=== PATIENT | male | born 1960 | race African-American/Black ===

== ENCOUNTER 2020-06-28 20:59 | Emergency (ER) | payer OTHER ==
[~2020-06-28] VITALS: Ht 180.3 cm; Wt 77.0 kg
[2020-06-28] MEDS ORDERED: ONDANSETRON HCL 4MG/2ML INJ IV STA (21:59)
[2020-06-28] MEDS ORDERED: SODIUM CHLORIDE 0.9% 1,000 ML IV ONE (21:59)
[2020-06-28] MEDS ORDERED: KETOROLAC 30MG/ML VIAL IV STA (21:59)
[2020-06-28 23:09] LABS: HEMOGLOBIN. 14.8 g/dL (14.0-18.0); MEAN CORPUSCULAR HEMOGLOBIN 31.3 pg (28.0-32.0); MEAN CORPUSCULAR VOLUME 90.8 fL (80.0-94.0); MEAN PLATELET VOLUME 8.6 fl (7.4-10.4); PLATELET 199 x1000/uL (130-400); RED BLOOD CELL COUNT 4.74 mill/uL (4.7-6.1)
[2020-06-28 23:15] LABS: CHLORIDE 106 mEq/L (98-107)
[2020-06-28 23:20] LABS: PLATELET ESTIMATE NORMAL
[2020-06-29 00:12] LABS: CLARITY URINE CLOUDY (CLEAR); COLOR URINE DARK YELLOW (YELLOW); KETONES URINE 2+ (NEGATIVE); LEUKOCYTE ESTERASE URINE NEGATIVE (NEGATIVE); NITRITE URINE NEGATIVE (NEGATIVE); OCCULT BLOOD URINE TRACE (NEGATIVE); PROTEIN URINE 2+ (NEGATIVE); SPECIFIC GRAVITY URINE 1.031 (1.005-1.030)
[2020-06-29] MEDS ORDERED: POTASSIUM CHLORIDE 20MEQ TABLET SR PO NR (00:15)
[2020-06-29 00:38] VITALS: BP 143/91
== END 2020-06-29 00:43 | disposition home or self-care (01) ==
LOC: ER 20:59
DX: R10.84 Generalized abdominal pain (principal); R11.2 Nausea with vomiting, unspecified; I10 Essential (primary) hypertension
CPT/HCPCS: 36415; 74176; 80053; 81003; 83690; 84484; 85025; 85610; 93005; 96361; 96374; 96375; 99285; J1885; J2405; J7030

== ENCOUNTER 2021-01-06 05:20 | Emergency (ER) | payer OTHER ==
[~2021-01-06] VITALS: Ht 167.6 cm; Wt 80.0 kg
[2021-01-06] MEDS ORDERED: MORPHINE SULFATE 4 MG/ML CPJ (NOT FOR IM USE) IV STA (06:17)
[2021-01-06] MEDS ORDERED: ONDANSETRON HCL 4MG/2ML INJ IV STA ×2 (06:17→10:00)
[2021-01-06 06:25] LABS: BASOPHILS % 0.9 % (0.0-2.0); HEMATOCRIT. 43.5 % (42.0-52.0); LYMPHOCYTES % 13.2 % (20.0-50.0); MEAN CORPUSCULAR HEMOGLOBIN 32.1 pg (28.0-32.0); MONOCYTES % 4.3 % (2.0-8.0); NEUTROPHILS % 81.6 % (40.0-76.0); PLATELET 167 x1000/uL (130-400); RED BLOOD CELL COUNT 4.67 mill/uL (4.7-6.1); RED CELL DISTRIBUTION WIDTH 13.5 % (11.6-14.6)
[2021-01-06] MEDS ORDERED: SODIUM CHLORIDE 0.9% 1,000 ML IV ONE (06:30)
[2021-01-06 06:34] LABS: CHLORIDE 97 mEq/L (98-107)
[2021-01-06 07:05] LABS: PROTHROMBIN TIME 10.7 sec (9.6-11.0)
[2021-01-06 07:27] LABS: CLARITY URINE CLEAR (CLEAR); COLOR URINE YELLOW (YELLOW); KETONES URINE 1+ (NEGATIVE); LEUKOCYTE ESTERASE URINE NEGATIVE (NEGATIVE); NITRITE URINE NEGATIVE (NEGATIVE); OCCULT BLOOD URINE TRACE (NEGATIVE); PROTEIN URINE 2+ (NEGATIVE)
[2021-01-06] MEDS ORDERED: METOCLOPRAMIDE HCL 10MG/2ML VIAL IV NR (08:45)
[2021-01-06] MEDS: POTASSIUM CHLORIDE 20MEQ TABLET SR PO SCH ×2 (09:14→11:34)
[2021-01-06] MEDS ORDERED: MAGNESIUM/ALUMINUM HYDROXIDE/SIMETHICONE 30ML UDC PO STA (10:00)
[2021-01-06] MEDS ORDERED: ONDA4TAB5 MT (12:44)
[2021-01-06] MEDS ORDERED: L25 MT (12:44)
[2021-01-06 13:00] VITALS: BP 162/82
[2021-01-06] MEDS ORDERED: CHLORDIAZEPOXIDE 25MG CAPSULE PO ONE (13:00)
[2021-01-06] MEDS ORDERED: IOHEXOL-300 100 ML BOTTLE ONE (14:47)
== END 2021-01-06 13:15 | disposition home or self-care (01) ==
LOC: ER 05:20
DX: F10.229 Alcohol dependence with intoxication, unspecified (principal); R10.84 Generalized abdominal pain; R11.2 Nausea with vomiting, unspecified; R19.7 Diarrhea, unspecified; Y90.0 Blood alcohol level of less than 20 mg/100 ml; F17.290 Nicotine dependence, other tobacco product, uncomplicated; I10 Essential (primary) hypertension; Z79.899 Other long term (current) drug therapy
CPT/HCPCS: 36415; 74177; 80053; 81003; 83690; 84484; 85025; 85610; 93005; 96361; 96374; 96375; 96376; 99285; J2270; J2405; J2765; J7030; Q9967

== ENCOUNTER 2022-02-02 07:30 | Emergency (ER) | payer OTHER ==
[~2022-02-02] VITALS: Ht 165.1 cm; Wt 78.0 kg
[~2022-02-02 07:30] MED LIST: L25 MT; ONDA4TAB5 MT
[2022-02-02 07:47] VITALS: BP 203/121
[2022-02-02] MEDS ORDERED: CHLORDIAZEPOXIDE 25MG CAPSULE PO ONE (08:00)
== END 2022-02-02 08:13 | disposition home or self-care (01) ==
LOC: ER 07:54
DX: F10.239 Alcohol dependence with withdrawal, unspecified (principal); Y90.0 Blood alcohol level of less than 20 mg/100 ml; I10 Essential (primary) hypertension
CPT/HCPCS: 99283

== ENCOUNTER 2022-12-12 18:44 | Emergency (ER) | payer OTHER ==
[~2022-12-12] VITALS: Ht 172.7 cm; Wt 84.0 kg
[2022-12-12] MEDS ORDERED: ONDANSETRON HCL 4MG/2ML INJ IV STA (19:03)
[2022-12-12] MEDS ORDERED: SODIUM CHLORIDE 0.9% 1,000 ML IV ONE (19:15)
[2022-12-12 19:38] LABS: BASOPHILS % 0.4 % (0.0-2.0); EOSINOPHILS % 0.1 % (0.0-5.0); HEMATOCRIT. 42.5 % (42.0-52.0); HEMOGLOBIN. 15.1 g/dL (14.0-18.0); LYMPHOCYTES % 10.7 % (20.0-50.0); MEAN CORPUSCULAR HEMOGLOBIN 32.5 pg (28.0-32.0); MEAN CORPUSCULAR VOLUME 91.4 fL (80.0-94.0); MEAN PLATELET VOLUME 7.8 fl (7.4-10.4); MONOCYTES % 4.1 % (2.0-8.0); NEUTROPHILS % 84.7 % (40.0-76.0); PLATELET 159 x1000/uL (130-400); RED BLOOD CELL COUNT 4.64 mill/uL (4.7-6.1); RED CELL DISTRIBUTION WIDTH 12.8 % (11.6-14.6)
[2022-12-12 19:45] LABS: CHLORIDE 101 mEq/L (98-107)
[2022-12-12 19:54] LABS: ETHANOL BLOOD < 10 mg/dL
[2022-12-13] MEDS ORDERED: ONDA4TAB50 MT ×2 (02:18→15:01)
[2022-12-13] MEDS ORDERED: ONDANSETRON HCL 4MG/2ML INJ IV NR (02:30)
[2022-12-13 03:10] VITALS: BP 127/79
[2022-12-13] MEDS ORDERED: FAMO20TA8 PO (15:01)
== END 2022-12-13 05:28 | disposition home or self-care (01) ==
LOC: ER 18:44
DX: R11.2 Nausea with vomiting, unspecified (principal); I10 Essential (primary) hypertension
CPT/HCPCS: 36415; 80053; 80320; 83690; 85025; 93005; 96374; 99284; J2405; J7030; G0480

== ENCOUNTER 2022-12-13 09:39 | Emergency (ER) | payer OTHER ==
[~2022-12-13] VITALS: Ht 172.7 cm; Wt 91.0 kg
[~2022-12-13 09:39] MED LIST changes: +ONDA4TAB50 MT
[2022-12-13 09:44] VITALS: BP 147/83
[2022-12-13] MEDS ORDERED: ONDANSETRON HCL 4MG/2ML INJ IM ONE (10:45)
[2022-12-13 11:07] LABS: HEMATOCRIT. 44.2 % (42.0-52.0); HEMOGLOBIN. 15.6 g/dL (14.0-18.0); MEAN CORPUSCULAR VOLUME 90.9 fL (80.0-94.0); MEAN PLATELET VOLUME 7.8 fl (7.4-10.4); PLATELET 163 x1000/uL (130-400); RED BLOOD CELL COUNT 4.86 mill/uL (4.7-6.1); RED CELL DISTRIBUTION WIDTH 12.6 % (11.6-14.6)
[2022-12-13 11:10] LABS: CHLORIDE 106 mEq/L (98-107)
[2022-12-13 11:35] LABS: PLATELET ESTIMATE NORMAL
[2022-12-13] MEDS ORDERED: METOCLOPRAMIDE HCL 10MG/2ML VIAL IM ONE (12:15)
[2022-12-13] MEDS ORDERED: KETOROLAC 30MG/ML VIAL IM ONE (13:45)
[2022-12-13] MEDS ORDERED: ONDA4TAB50 MT (15:01)
[2022-12-13] MEDS ORDERED: FAMO20TA8 PO (15:01)
== END 2022-12-13 15:26 | disposition home or self-care (01) ==
LOC: ER 09:59
DX: R11.2 Nausea with vomiting, unspecified (principal); I10 Essential (primary) hypertension
CPT/HCPCS: 36415; 76705; 80053; 83690; 85025; 96372; 99285; J1885; J2405; J2765

== ENCOUNTER 2023-04-18 03:49 | Emergency (ER) | payer OTHER ==
[~2023-04-18] VITALS: Ht 167.6 cm; Wt 84.0 kg
[~2023-04-18 03:49] MED LIST changes: +FAMO20TA8 PO
[2023-04-18 03:58] VITALS: TEMP 99.9; O2SAT 98
[2023-04-18] MEDS ORDERED: KETOROLAC 30MG/ML VIAL IV STA (05:47)
[2023-04-18] MEDS ORDERED: ONDANSETRON HCL 4MG/2ML INJ IV STA (05:47)
[2023-04-18] MEDS ORDERED: SODIUM CHLORIDE 0.9% 1,000 ML IV ONE (06:00)
[2023-04-18 06:09] VITALS: BP 174/96; PULSE 84; RESP 16
[2023-04-18 06:29] LABS: BASOPHILS % 0.2 % (0.0-2.0); HEMATOCRIT. 40.6 % (42.0-52.0); HEMOGLOBIN. 14.6 g/dL (14.0-18.0); LYMPHOCYTES % 7.8 % (20.0-50.0); MEAN PLATELET VOLUME 8.1 fl (7.4-10.4); MONOCYTES % 4.1 % (2.0-8.0); NEUTROPHILS % 87.9 % (40.0-76.0); PLATELET 153 x1000/uL (130-400); RED BLOOD CELL COUNT 4.41 mill/uL (4.7-6.1); RED CELL DISTRIBUTION WIDTH 14.7 % (11.6-14.6)
[2023-04-18 06:33] LABS: PROTHROMBIN TIME 10.6 sec (9.6-11.0)
[2023-04-18 06:46] LABS: CHLORIDE 99 mEq/L (98-107)
== END 2023-04-18 09:10 | disposition home or self-care (01) ==
LOC: ER 03:49
DX: R11.2 Nausea with vomiting, unspecified (principal); F10.229 Alcohol dependence with intoxication, unspecified; Y90.0 Blood alcohol level of less than 20 mg/100 ml; I10 Essential (primary) hypertension
CPT/HCPCS: 36415; 76705; 80053; 83690; 84484; 85025; 85610; 93005; 96361; 96374; 96375; 99285; J1885; J2405; J7030

== ENCOUNTER 2024-01-28 13:52 | Emergency (ER) | payer OTHER ==
[~2024-01-28] VITALS: Ht 167.6 cm; Wt 82.0 kg
[~2024-01-28 13:52] MED LIST changes: +CHLO25CA11 MT; -L25 MT
[2024-01-28 13:55] VITALS: O2SAT 98
[2024-01-28] MEDS ORDERED: DICYCLOMINE 10 MG/5 ML ORAL SYR PO STA (14:02)
[2024-01-28] MEDS: MAGNESIUM/ALUMINUM HYDROXIDE/SIMETHICONE 30ML UDC PO STA (15:01)
[2024-01-28] MEDS: CHLORDIAZEPOXIDE 25MG CAPSULE PO ONE (15:02)
[2024-01-28] MEDS: ONDANSETRON 4MG ODT PO STA (15:02)
[2024-01-28] MEDS: DICYCLOMINE HCL 10MG CAPSULE PO SCH (15:02)
[2024-01-28 16:01] LABS: BASOPHILS % 0.6 % (0.0-2.0); HEMATOCRIT. 39.6 % (42.0-52.0); HEMOGLOBIN. 13.8 g/dL (14.0-18.0); LYMPHOCYTES % 12.8 % (20.0-50.0); MEAN CORPUSCULAR HEMOGLOBIN 34.4 pg (28.0-32.0); MEAN CORPUSCULAR HGB CONC 34.8 g/dL (31.0-37.0); MEAN CORPUSCULAR VOLUME 98.8 fL (80.0-94.0); MEAN PLATELET VOLUME 8.2 fl (7.4-10.4); MONOCYTES % 6.6 % (2.0-8.0); PLATELET 122 x1000/uL (130-400); WHITE BLOOD COUNT 5.5 x1000/uL (4.5-11.0)
[2024-01-28 16:19] LABS: ALANINE AMINOTRANSFERASE 45 IU/L (10-49); ALBUMIN 5.4 g/dL (3.2-4.8); ASPARTATE AMINOTRANSFERASE 38 IU/L (<34); BILIRUBIN TOTAL 3.1 mg/dL (0.1-1.0); CALCIUM 9.8 mg/dL (8.7-10.4); CARBON DIOXIDE 30 mEq/L (21-32); CHLORIDE 100 mEq/L (98-107); CREATININE 1.5 mg/dL (0.6-1.3); ETHANOL BLOOD < 10 mg/dL (<10); GLUCOSE 99 mg/dL (70-105); SODIUM 137 mEq/L (136-145); UREA NITROGEN BLOOD 14 mg/dL (9-23)
[2024-01-28] MEDS ORDERED: FAMO-135 MT (16:29)
[2024-01-28] MEDS: SODIUM CHLORIDE 0.9% 1,000 ML IV ONE (16:30)
[2024-01-28 18:01] LABS: CLARITY URINE CLEAR (CLEAR); COLOR URINE DARK YELLOW (YELLOW); GLUCOSE URINE NEGATIVE (NEGATIVE); KETONES URINE 1+ (NEGATIVE); LEUKOCYTE ESTERASE URINE NEGATIVE (NEGATIVE); NITRITE URINE NEGATIVE (NEGATIVE); OCCULT BLOOD URINE NEGATIVE (NEGATIVE); PH URINE 5.5 (4.5-8.0); PROTEIN URINE 1+ (NEGATIVE); SPECIFIC GRAVITY URINE 1.022 (1.005-1.030)
[2024-01-28 18:34] LABS: RBC URINE 0-2 /hpf (0-2); WBC URINE 0-2 /hpf (0-2)
[2024-01-28 18:35] LABS: BACTERIA URINE NONE SEEN; HYALINE CASTS URINE 0-5 /lpf; SQUAMOUS EPITHELIAL CELL URINE NONE SEEN /lpf (RARE/1+)
[2024-01-28 18:47] VITALS: BP 124/89; PULSE 98; RESP 16; TEMP 98.5
[2024-01-29] MEDS ORDERED: ONDA4TAB50 MT (07:10)
[2024-01-29] MEDS ORDERED: MAG355OR21 MT (07:10)
== END 2024-01-28 19:01 | disposition home or self-care (01) ==
LOC: ER 13:52
DX: F10.239 Alcohol dependence with withdrawal, unspecified (principal); K76.0 Fatty (change of) liver, not elsewhere classified; I10 Essential (primary) hypertension; Y90.0 Blood alcohol level of less than 20 mg/100 ml
CPT/HCPCS: 80053; 81003; 80320; 83690; 85025; 36415; 76705; 96360; 99284; Q0162; J7030; G0480

== ENCOUNTER 2024-01-29 02:06 | Emergency (ER) | payer OTHER ==
[~2024-01-29] VITALS: Ht 177.8 cm; Wt 82.0 kg
[~2024-01-29 02:06] MED LIST changes: +FAMO-135 MT
[2024-01-29 02:09] VITALS: O2SAT 99
[2024-01-29] MEDS: MAGNESIUM/ALUMINUM HYDROXIDE/SIMETHICONE 30ML UDC PO ONE (03:39)
[2024-01-29] MEDS: PANTOPRAZOLE 40MG DR TABLET PO ONE (03:40)
[2024-01-29] MEDS: ONDANSETRON 4MG ODT PO ONE (03:40)
[2024-01-29] MEDS: LOSARTAN 100 MG TABLET PO ONE (05:45)
[2024-01-29] MEDS: AMLODIPINE 10MG TABLET PO ONE (05:46)
[2024-01-29] MEDS: ACETAMINOPHEN 325MG TABLET PO ONE (05:46)
[2024-01-29] MEDS ORDERED: ONDA4TAB50 MT (07:10)
[2024-01-29] MEDS ORDERED: MAG355OR21 MT (07:10)
[2024-01-29 07:20] VITALS: BP 186/107; PULSE 82; RESP 16; TEMP 98.1
== END 2024-01-29 07:29 | disposition home or self-care (01) ==
LOC: ER 02:06
DX: R11.2 Nausea with vomiting, unspecified (principal); I10 Essential (primary) hypertension; Z91.148 Patient's other noncompliance with medication regimen for other reason
CPT/HCPCS: 99285; Q0162

== ENCOUNTER 2024-05-21 03:02 | Emergency (ER) | payer OTHER ==
[~2024-05-21] VITALS: Ht 175.3 cm; Wt 77.0 kg
[~2024-05-21 03:02] MED LIST changes: +MAG355OR21 MT
[2024-05-21 03:04] VITALS: O2SAT 99
[2024-05-21] MEDS: MAGNESIUM/ALUMINUM HYDROXIDE/SIMETHICONE 30ML UDC PO STA (03:28)
[2024-05-21] MEDS: ONDANSETRON 4MG ODT PO STA (03:28)
[2024-05-21 03:51] LABS: BASOPHILS % 0.3 % (0.0-2.0); HEMATOCRIT. 39.2 % (42.0-52.0); HEMOGLOBIN. 13.5 g/dL (14.0-18.0); LYMPHOCYTES % 7.4 % (20.0-50.0); MEAN CORPUSCULAR HEMOGLOBIN 34.3 pg (28.0-32.0); MEAN CORPUSCULAR HGB CONC 34.3 g/dL (31.0-37.0); MEAN CORPUSCULAR VOLUME 99.8 fL (80.0-94.0); MEAN PLATELET VOLUME 7.3 fl (7.4-10.4); MONOCYTES % 3.5 % (2.0-8.0); NEUTROPHILS % 88.8 % (40.0-76.0); PLATELET 229 x1000/uL (130-400); RED BLOOD CELL COUNT 3.93 mill/uL (4.7-6.1); RED CELL DISTRIBUTION WIDTH 13.6 % (11.6-14.6); WHITE BLOOD COUNT 5.5 x1000/uL (4.5-11.0)
[2024-05-21 04:24] LABS: CARBON DIOXIDE 26 mEq/L (21-32); CHLORIDE 102 mEq/L (98-107); SODIUM 139 mEq/L (136-145)
[2024-05-21 04:25] LABS: CALCIUM 9.6 mg/dL (8.7-10.4)
[2024-05-21 04:29] LABS: GLUCOSE 119 mg/dL (70-105); UREA NITROGEN BLOOD 9 mg/dL (9-23)
[2024-05-21 04:31] LABS: ALANINE AMINOTRANSFERASE 63 IU/L (10-49); ALBUMIN 5.2 g/dL (3.2-4.8); ASPARTATE AMINOTRANSFERASE 37 IU/L (<34); BILIRUBIN DIRECT 0.7 mg/dL (<=3.0); BILIRUBIN TOTAL 1.8 mg/dL (0.1-1.0)
[2024-05-21 04:32] LABS: PROTEIN TOTAL 8.2 g/dL (6.0-8.3)
[2024-05-21] MEDS ORDERED: ONDA4TAB50 MT (05:58)
[2024-05-21] MEDS ORDERED: IBUP-2028 MT (05:58)
[2024-05-21 06:13] VITALS: BP 139/88; PULSE 89; RESP 20; TEMP 98.6
[2024-05-21] MEDS ORDERED: ONDANSETRON 4MG ODT PO NR (06:30)
[2024-05-21] MEDS ORDERED: MAGNESIUM/ALUMINUM HYDROXIDE/SIMETHICONE 30ML UDC PO NR (06:30)
== END 2024-05-21 06:42 | disposition home or self-care (01) ==
LOC: ER 03:18
DX: R10.13 Epigastric pain (principal); R11.2 Nausea with vomiting, unspecified; S20.219A Contusion of unspecified front wall of thorax, initial encounter; I10 Essential (primary) hypertension; Z79.899 Other long term (current) drug therapy; Z86.59 Personal history of other mental and behavioral disorders; X58.XXXA Exposure to other specified factors, initial encounter; Y93.89 Activity, other specified; Y92.89 Other specified places as the place of occurrence of the external cause; Y99.8 Other external cause status
CPT/HCPCS: 36415; 71101; 80048; 80076; 83605; 85025; 99284

== ENCOUNTER 2024-09-12 06:03 | Emergency (ER) | payer OTHER ==
[~2024-09-12] VITALS: Ht 177.8 cm; Wt 85.0 kg
[~2024-09-12 06:03] MED LIST changes: +IBUP-2028 MT
[2024-09-12 06:11] VITALS: TEMP 98.7; O2SAT 100
[2024-09-12] MEDS: ONDANSETRON HCL 4MG/2ML INJ IV STA (06:50)
[2024-09-12 07:32] LABS: HEMATOCRIT. 37.5 % (42.0-52.0); HEMOGLOBIN. 12.9 g/dL (14.0-18.0); MEAN CORPUSCULAR HEMOGLOBIN 35.2 pg (28.0-32.0); MEAN CORPUSCULAR HGB CONC 34.5 g/dL (31.0-37.0); MEAN PLATELET VOLUME 8.3 fl (7.4-10.4); PLATELET 150 x1000/uL (130-400); RED BLOOD CELL COUNT 3.67 mill/uL (4.7-6.1); WHITE BLOOD COUNT 5.8 x1000/uL (4.5-11.0)
[2024-09-12 07:46] LABS: CHLORIDE 104 mEq/L (98-107); POTASSIUM 3.5 mEq/L (3.5-5.1); SODIUM 141 mEq/L (136-145)
[2024-09-12 07:47] LABS: CARBON DIOXIDE 26 mEq/L (21-32)
[2024-09-12 07:52] LABS: CREATININE 0.9 mg/dL (0.6-1.3); GLUCOSE 132 mg/dL (70-105)
[2024-09-12] MEDS: SODIUM CHLORIDE 0.9% 1,000 ML IV ONE (07:52)
[2024-09-12 07:53] LABS: ETHANOL BLOOD 247 mg/dL (<10); UREA NITROGEN BLOOD 9 mg/dL (9-23)
[2024-09-12 07:56] LABS: DIFFERENTIAL COMMENT 1
[2024-09-12 09:16] LABS: PLATELET ESTIMATE NORMAL
[2024-09-12 10:59] VITALS: BP 140/77; PULSE 66; RESP 18; O2SAT 99
== END 2024-09-12 11:00 | disposition home or self-care (01) ==
LOC: ER 06:03
DX: F10.129 Alcohol abuse with intoxication, unspecified (principal); F20.9 Schizophrenia, unspecified; I10 Essential (primary) hypertension; Z79.899 Other long term (current) drug therapy; Y90.8 Blood alcohol level of 240 mg/100 ml or more
CPT/HCPCS: 80048; 80320; 85025; 36415; 96361; 96374; 99283; J2405; J7030; G0480

== ENCOUNTER 2024-09-13 05:17 | Emergency (ER) | payer OTHER ==
[~2024-09-13] VITALS: Ht 172.7 cm; Wt 76.0 kg
[2024-09-13 05:21] VITALS: O2SAT 98
[2024-09-13] MEDS: MAGNESIUM/ALUMINUM HYDROXIDE/SIMETHICONE 30ML UDC PO STA (05:37)
[2024-09-13] MEDS: DICYCLOMINE 10 MG/5 ML ORAL SYR PO STA (05:37)
[2024-09-13 06:15] LABS: BASOPHILS % 0.2 % (0.0-2.0); DIFFERENTIAL COMMENT 0; EOSINOPHILS % 0.1 % (0.0-5.0); HEMATOCRIT. 36.8 % (42.0-52.0); HEMOGLOBIN. 12.9 g/dL (14.0-18.0); LYMPHOCYTES % 8.9 % (20.0-50.0); MEAN CORPUSCULAR HEMOGLOBIN 35.4 pg (28.0-32.0); MEAN CORPUSCULAR HGB CONC 35.1 g/dL (31.0-37.0); MEAN CORPUSCULAR VOLUME 100.8 fL (80.0-94.0); MONOCYTES % 9.4 % (2.0-8.0); NEUTROPHILS % 81.4 % (40.0-76.0); PLATELET 115 x1000/uL (130-400); RED BLOOD CELL COUNT 3.65 mill/uL (4.7-6.1); RED CELL DISTRIBUTION WIDTH 13.7 % (11.6-14.6); WHITE BLOOD COUNT 3.6 x1000/uL (4.5-11.0)
[2024-09-13 06:24] LABS: INR 0.9; PROTHROMBIN TIME 10.6 sec (9.6-11.0)
[2024-09-13 06:27] LABS: CARBON DIOXIDE 28 mEq/L (21-32); CHLORIDE 101 mEq/L (98-107); POTASSIUM 3.3 mEq/L (3.5-5.1); SODIUM 138 mEq/L (136-145)
[2024-09-13 06:28] LABS: CALCIUM 8.9 mg/dL (8.7-10.4)
[2024-09-13 06:33] LABS: CREATININE 0.8 mg/dL (0.6-1.3); ETHANOL BLOOD 21 mg/dL (<10); GLUCOSE 134 mg/dL (70-105); UREA NITROGEN BLOOD 9 mg/dL (9-23)
[2024-09-13] MEDS: FOLIC ACID 1 MG, THIAMINE HCL 100 MG, MVI, ADULT NO.1 10 ML in DEXTROSE 5% WATER 1,000 ML IV ONE (06:33)
[2024-09-13] MEDS: LORAZEPAM 2MG/ML INJ IV ONE (06:33)
[2024-09-13] MEDS: ONDANSETRON HCL 4MG/2ML INJ IV STA (06:33)
[2024-09-13 06:34] LABS: ALANINE AMINOTRANSFERASE 57 IU/L (10-49); ALBUMIN 4.3 g/dL (3.2-4.8); ASPARTATE AMINOTRANSFERASE 55 IU/L (<34)
[2024-09-13 06:35] LABS: BILIRUBIN DIRECT 0.7 mg/dL (<=3.0); BILIRUBIN TOTAL 2.1 mg/dL (0.1-1.0); PHOSPHORUS 2.7 mg/dL (2.5-4.9); PROTEIN TOTAL 7.1 g/dL (6.0-8.3)
[2024-09-13 08:24] VITALS: BP 139/86; PULSE 85; RESP 18; TEMP 36.78072; O2SAT 100
== END 2024-09-13 08:36 | disposition home or self-care (01) ==
LOC: ER 05:17
DX: F10.239 Alcohol dependence with withdrawal, unspecified (principal); K76.0 Fatty (change of) liver, not elsewhere classified; I10 Essential (primary) hypertension; Z79.899 Other long term (current) drug therapy; Z86.59 Personal history of other mental and behavioral disorders; Y90.1 Blood alcohol level of 20-39 mg/100 ml
CPT/HCPCS: 80076; 80048; 80320; 83690; 83735; 84100; 85025; 85610; 36415; 74176; 93005; 96365; 96375; 99285; J3490 ×2; J2060; J2405; J3411; J7070; G0480

== ENCOUNTER 2024-11-14 04:31 | Inpatient (IN) | payer OTHER ==
[~2024-11-14] VITALS: Ht 172.7 cm; Wt 2146.6 kg
[2024-11-14 05:01] LABS: BASOPHILS % 1.1 % (0.0-2.0); DIFFERENTIAL COMMENT 0; EOSINOPHILS % 0.2 % (0.0-5.0); HEMOGLOBIN. 12.2 g/dL (14.0-18.0); LYMPHOCYTES % 35.5 % (20.0-50.0); MEAN CORPUSCULAR HEMOGLOBIN 34.5 pg (28.0-32.0); MEAN CORPUSCULAR VOLUME 101.5 fL (80.0-94.0); MEAN PLATELET VOLUME 8.4 fl (7.4-10.4); MONOCYTES % 6.9 % (2.0-8.0); NEUTROPHILS % 56.3 % (40.0-76.0); PLATELET 94 x1000/uL (130-400); RED BLOOD CELL COUNT 3.55 mill/uL (4.7-6.1); RED CELL DISTRIBUTION WIDTH 13.1 % (11.6-14.6); WHITE BLOOD COUNT 2.4 x1000/uL (4.5-11.0)
[2024-11-14 05:07] LABS: CHLORIDE 104 mEq/L (98-107); POTASSIUM 3.6 mEq/L (3.5-5.1); SODIUM 137 mEq/L (136-145)
[2024-11-14 05:08] LABS: CARBON DIOXIDE 21 mEq/L (21-32)
[2024-11-14 05:09] LABS: CALCIUM 8.5 mg/dL (8.7-10.4)
[2024-11-14 05:13] LABS: CREATININE 0.9 mg/dL (0.6-1.3); GLUCOSE 131 mg/dL (70-105); UREA NITROGEN BLOOD 7 mg/dL (9-23)
[2024-11-14 05:14] VITALS: O2SAT 99
[2024-11-14 05:15] LABS: TROPONIN I HIGH SENSITIVITY 5 ng/L (3.0-53)
[2024-11-14] MEDS: SODIUM CHLORIDE 0.9% 1,000 ML IV ONE (08:32)
[2024-11-14] MEDS: LORAZEPAM 2MG/ML INJ IV ONE (08:40)
[2024-11-14] MEDS: CHLORDIAZEPOXIDE 25MG CAPSULE PO ONE (08:40)
[2024-11-14 11:26] VITALS: BP 172/97; PULSE 69; RESP 17; TEMP 36.61404; O2SAT 99
[2024-11-14 11:44] VITALS: BP 172/97; PULSE 69; RESP 17; TEMP 36.6404
[2024-11-14] MEDS ORDERED: DIAZEPAM 5 MG/ML 2ML SYR IV PRN (12:30)
[2024-11-14] MEDS ORDERED: CLONIDINE 0.1MG TABLET PO PRN (12:30)
[2024-11-14] MEDS ORDERED: ONDANSETRON HCL 4MG/2ML INJ IV PRN (12:30)
[2024-11-14] MEDS ORDERED: MAGNESIUM/ALUMINUM HYDROXIDE/SIMETHICONE 30ML UDC PO PRN (12:30)
[2024-11-14] MEDS ORDERED: ACETAMINOPHEN 325MG TABLET PO PRN ×2 (12:30)
[2024-11-14] MEDS ORDERED: CHLORDIAZEPOXIDE 25MG CAPSULE PO SCH (14:00)
[2024-11-14] MEDS ORDERED: MVI, ADULT NO.1 10 ML, FOLIC ACID 1 MG, THIAMINE HCL 100 MG in SODIUM CHLORIDE 0.9% 1,0... IV ONE (14:00)
[2024-11-14] MEDS ORDERED: ZOLPIDEM TARTRATE 5MG TABLET PO PRN (21:00)
[2024-11-14] MEDS ORDERED: SODIUM CHLORIDE 0.9% 1,000 ML IV SCH (22:05)
== END 2024-11-14 12:40 | disposition left against medical advice (07) | DRG 74 ==
LOC: ER 04:42 → 3WST 06:47
PROVIDERS: ADMIT Internal Medicine; ATTEND Internal Medicine
DX: G90.89 Other disorders of autonomic nervous system (principal); F10.239 Alcohol dependence with withdrawal, unspecified; Z53.29 Procedure and treatment not carried out because of patient's decision for other reasons; F20.9 Schizophrenia, unspecified; D69.6 Thrombocytopenia, unspecified; D72.819 Decreased white blood cell count, unspecified; I10 Essential (primary) hypertension; F99 Mental disorder, not otherwise specified; Y90.9 Presence of alcohol in blood, level not specified
CPT/HCPCS: 36415; 71045; 80048; 84484; 85025; 93005; 99285; J2060; J3411; J3490; J7030

== ENCOUNTER 2024-12-06 12:27 | Inpatient (IN) | payer OTHER ==
[~2024-12-06] VITALS: Ht 172.7 cm; Wt 86.2 kg
[2024-12-06] MEDS ORDERED: LORAZEPAM 1MG TABLET PO ONE (15:30)
[2024-12-06] MEDS ORDERED: LORAZEPAM 2MG/ML INJ IV ONE ×2 (16:15→17:00)
[2024-12-06] MEDS: ONDANSETRON HCL 4MG/2ML INJ IV ONE (16:23)
[2024-12-06] MEDS: SODIUM CHLORIDE 0.9% 1,000 ML IV ONE (16:23)
[2024-12-06] MEDS: FAMOTIDINE 20MG/2ML VIAL IV ONE (16:23)
[2024-12-06 16:41] LABS: HEMATOCRIT. 38.6 % (42.0-52.0); HEMOGLOBIN. 13.1 g/dL (14.0-18.0); MEAN CORPUSCULAR HEMOGLOBIN 34.7 pg (28.0-32.0); MEAN CORPUSCULAR VOLUME 101.9 fL (80.0-94.0); MEAN PLATELET VOLUME 8.6 fl (7.4-10.4); PLATELET 118 x1000/uL (130-400); RED BLOOD CELL COUNT 3.79 mill/uL (4.7-6.1)
[2024-12-06 16:42] LABS: DIFFERENTIAL COMMENT 1
[2024-12-06 16:45] LABS: CHLORIDE 103 mEq/L (98-107); POTASSIUM 3.4 mEq/L (3.5-5.1); SODIUM 139 mEq/L (136-145)
[2024-12-06 16:46] LABS: CARBON DIOXIDE 22 mEq/L (21-32)
[2024-12-06 16:47] LABS: CALCIUM 9.3 mg/dL (8.7-10.4)
[2024-12-06 16:51] LABS: CREATININE 0.9 mg/dL (0.6-1.3); GLUCOSE 134 mg/dL (70-105)
[2024-12-06 16:52] LABS: ETHANOL BLOOD 224 mg/dL (<10); UREA NITROGEN BLOOD 7 mg/dL (9-23)
[2024-12-06 16:53] LABS: ALANINE AMINOTRANSFERASE 67 IU/L (10-49); ALBUMIN 4.6 g/dL (3.2-4.8); ASPARTATE AMINOTRANSFERASE 67 IU/L (<34)
[2024-12-06 16:54] LABS: BILIRUBIN DIRECT 0.5 mg/dL (<=3.0); BILIRUBIN TOTAL 1.5 mg/dL (0.1-1.0); PROTEIN TOTAL 7.6 g/dL (6.0-8.3)
[2024-12-06] MEDS: LORAZEPAM 2MG/ML INJ IV NR (17:00)
[2024-12-06 17:03] LABS: PLATELET ESTIMATE DECREASED
[2024-12-06] MEDS ORDERED: DOCUSATE SODIUM 100MG CAPSULE PO PRN (20:30)
[2024-12-06] MEDS ORDERED: ACETAMINOPHEN 325MG TABLET PO PRN ×2 (20:30)
[2024-12-06] MEDS ORDERED: IPRATROPIUM/ALBUTEROL 0.5-3(2.5)MG/3ML NEB HHN PRN (20:30)
[2024-12-06] MEDS ORDERED: GUAIFENESIN 200MG/10ML SUGAR FREE UDC PO PRN (20:30)
[2024-12-06] MEDS ORDERED: MAGNESIUM/ALUMINUM HYDROXIDE/SIMETHICONE 30ML UDC PO PRN (20:30)
[2024-12-06] MEDS ORDERED: LORAZEPAM 2MG/ML INJ IV PRN (21:15)
[2024-12-06] MEDS: KETOROLAC 30MG/ML VIAL IV NR (21:41)
[2024-12-06] MEDS: PANTOPRAZOLE SODIUM 40 MG/VIAL IV SCH (21:41)
[2024-12-06] MEDS: FOLIC ACID 1 MG, THIAMINE HCL 100 MG, MVI, ADULT NO.1 10 ML in DEXT 5%/0.9% NACL 1,000 ML IV ONE (22:27)
[2024-12-06 22:35] LABS: PHOSPHORUS 3.4 mg/dL (2.5-4.9)
[2024-12-06] MEDS: CLONIDINE 0.1MG TABLET PO PRN (23:08)
[2024-12-06] MEDS: LORAZEPAM 2MG/ML INJ IV PRN (23:38)
[2024-12-07] VITALS (7 sets, daily range): BP systolic 120–199; BP diastolic 66–98; PULSE 71–85; RESP 18–19; TEMP 36.3–36.7; O2SAT 97–100
[2024-12-07] MEDS: MAGNESIUM 2 G PREMIX 50 ML IV NR (01:02)
[2024-12-07] MEDS: KCL 20MEQ/100ML PREMIX 100 ML IV NR (01:02)
[2024-12-07] MEDS: SODIUM CHLORIDE 0.9% 1,000 ML IV ONE (06:02)
[2024-12-07 07:16] LABS: CALCIUM 8.8 mg/dL (8.7-10.4); CARBON DIOXIDE 25 mEq/L (21-32); CHLORIDE 103 mEq/L (98-107); POTASSIUM 3.8 mEq/L (3.5-5.1); SODIUM 141 mEq/L (136-145)
[2024-12-07 07:21] LABS: CREATININE 0.9 mg/dL (0.6-1.3); GLUCOSE 116 mg/dL (70-105); IRON 107 ug/dL (65-175)
[2024-12-07 07:22] LABS: LDL CHOLESTEROL 44 mg/dL (5-100); TRIGLYCERIDE 54 mg/dL (0-150); UREA NITROGEN BLOOD 12 mg/dL (9-23)
[2024-12-07 07:23] LABS: CHOLESTEROL 204 mg/dL (<200); HDL CHOLESTEROL 134 mg/dL (>55)
[2024-12-07 07:24] LABS: TOTAL IRON BINDING CAPACITY 136 ug/dl (250-425)
[2024-12-07 07:27] LABS: T4 FREE 1.12 ng/dL (0.89-1.76); THYROID STIMULATING HORMONE 2.64 uIU/mL (0.55-4.78)
[2024-12-07 07:39] LABS: FERRITIN 740 ng/mL (22-322)
[2024-12-07 07:40] LABS: FOLIC ACID (FOLATE) SERUM > 20.00 ng/mL (>5.38); VITAMIN B12 SERUM 586 pg/mL (211-911)
[2024-12-07 07:43] LABS: BASOPHILS % 0.5 % (0.0-2.0); DIFFERENTIAL COMMENT 0; HEMATOCRIT. 39.5 % (42.0-52.0); HEMOGLOBIN. 13.5 g/dL (14.0-18.0); LYMPHOCYTES % 8.7 % (20.0-50.0); MEAN CORPUSCULAR HEMOGLOBIN 35.3 pg (28.0-32.0); MEAN CORPUSCULAR HGB CONC 34.2 g/dL (31.0-37.0); MEAN CORPUSCULAR VOLUME 103.2 fL (80.0-94.0); MEAN PLATELET VOLUME 9.2 fl (7.4-10.4); MONOCYTES % 6.7 % (2.0-8.0); NEUTROPHILS % 84.1 % (40.0-76.0); PLATELET 99 x1000/uL (130-400); RED BLOOD CELL COUNT 3.82 mill/uL (4.7-6.1); RED CELL DISTRIBUTION WIDTH 14.3 % (11.6-14.6); WHITE BLOOD COUNT 5.5 x1000/uL (4.5-11.0)
[2024-12-07 07:50] LABS: HEPATITIS B SURFACE ANTIGEN NEGATIVE (Negative); INR 0.9; PROTHROMBIN TIME 10.6 sec (9.6-11.0)
[2024-12-07 08:10] LABS: HEPATITIS A AB IGM NEGATIVE (Negative)
[2024-12-07 08:11] LABS: HEPATITIS B CORE AB IGM NEGATIVE (Negative); HEPATITIS C AB NON REACTIVE (Neg) (Negative)
[2024-12-07 08:47] LABS: CLARITY URINE CLEAR (CLEAR); COLOR URINE DARK YELLOW (YELLOW); GLUCOSE URINE NEGATIVE (NEGATIVE); KETONES URINE 1+ (NEGATIVE); LEUKOCYTE ESTERASE URINE NEGATIVE (NEGATIVE); NITRITE URINE NEGATIVE (NEGATIVE); OCCULT BLOOD URINE NEGATIVE (NEGATIVE); PH URINE 5.5 (4.5-8.0); PROTEIN URINE 1+ (NEGATIVE); SPECIFIC GRAVITY URINE 1.021 (1.005-1.030)
[2024-12-07 09:02] LABS: *AMPHETAMINES SCREEN URINE NEGATIVE (NEGATIVE); *BARBITURATES SCREEN URINE NEGATIVE (NEGATIVE); *BENZODIAZEPINES SCREEN URINE PRESUMPTIVE POSITIVE (NEGATIVE); *COCAINE SCREEN URINE NEGATIVE (NEGATIVE); CANNABINOID URINE SCREEN NEGATIVE (NEGATIVE); ECSTASY MDMA SCREEN URINE NEGATIVE (NEGATIVE); METHADONE URINE SCREEN NEGATIVE (NEGATIVE); OPIATES URINE SCREEN NEGATIVE (NEGATIVE); PHENCYCLIDINE URINE SCREEN NEGATIVE (NEGATIVE)
[2024-12-07 09:27] LABS: MUCUS URINE 1+ /lpf (NONE/TRACE)
[2024-12-07 09:28] LABS: SQUAMOUS EPITHELIAL CELL URINE RARE /lpf (RARE/1+)
[2024-12-07] MEDS: FOLIC ACID 1MG TABLET PO SCH (09:29)
[2024-12-07] MEDS: THIAMINE HCL 100MG TABLET PO SCH (09:29)
[2024-12-07 09:30] LABS: BACTERIA URINE TRACE; RBC URINE 0-2 /hpf (0-2); WBC URINE 0-2 /hpf (0-2)
[2024-12-07] MEDS: AMLODIPINE 10MG TABLET PO SCH (15:54)
[2024-12-07] MEDS: CHLORDIAZEPOXIDE 25MG CAPSULE PO SCH (15:54)
[2024-12-07] MEDS: ATORVASTATIN CALCIUM 20MG TABLET PO SCH (21:21)
[2024-12-08] VITALS: BP 182/101; PULSE 71; RESP 19; TEMP 36.3; O2SAT 98
[2024-12-08] MEDS: ONDANSETRON HCL 4MG/2ML INJ IV PRN (02:17)
[2024-12-08] MEDS: HYDRALAZINE 20MG/ML VIAL IV NR (02:17)
[2024-12-08 04:00] VITALS: BP 148/78; PULSE 81; RESP 19; TEMP 36.2; O2SAT 98
[2024-12-08 08:00] VITALS: BP 147/77; PULSE 81; RESP 18; TEMP 36.2; O2SAT 99
[2024-12-08] MEDS ORDERED: FOLI-43 PO (09:19)
[2024-12-08] MEDS ORDERED: ATOR20TA PO (09:19)
[2024-12-08] MEDS ORDERED: AMLO10TA80 PO (09:19)
[2024-12-08] MEDS ORDERED: THIA100T72 PO (09:19)
[2024-12-08 10:42] VITALS: BP 145/75; PULSE 100; TEMP 98.1; O2SAT 97
[2024-12-08] MEDS ORDERED: AMLO10TA4 MT (11:23)
[2024-12-08] MEDS ORDERED: THIA100T88 MT (11:27)
[2024-12-08] MEDS ORDERED: ATOR20TA65 MT (11:27)
[2024-12-08] MEDS ORDERED: FOLI-43 MT (11:27)
[2024-12-08 12:00] VITALS: BP 131/91; PULSE 78; RESP 18; TEMP 25.6; O2SAT 97
== END 2024-12-08 11:30 | disposition home or self-care (01) | DRG 392 ==
LOC: ER 12:27 → 7EST 16:54 → EDBEDREQ 17:30 → EDBEDREQTM 17:30
PROVIDERS: ADMIT Hospitalist; ATTEND Hospitalist
DX: K57.30 Diverticulosis of large intestine without perforation or abscess without bleeding (principal); F10.239 Alcohol dependence with withdrawal, unspecified; F10.229 Alcohol dependence with intoxication, unspecified; I10 Essential (primary) hypertension; K76.0 Fatty (change of) liver, not elsewhere classified; D53.9 Nutritional anemia, unspecified; K44.9 Diaphragmatic hernia without obstruction or gangrene; Y90.7 Blood alcohol level of 200-239 mg/100 ml; E78.5 Hyperlipidemia, unspecified; E80.6 Other disorders of bilirubin metabolism; F17.210 Nicotine dependence, cigarettes, uncomplicated; F20.9 Schizophrenia, unspecified; Z71.6 Tobacco abuse counseling; Z79.899 Other long term (current) drug therapy
CPT/HCPCS: 36415; 74176; 76700; 80048; 80061; 80076; 80305; 80320; 81003; 82607; 82728; 82746; 83540; 83550; 83735; 84100; 84439; 84443; 85025; 85044; 86705; 86709; 87340; 99291; A4663; J0360; J1885; J2060; J2405; J2470; J3411; J3475; J3480; J3490; J7030; J7042; G0480